=== PATIENT | male | born 1970 | race African-American/Black ===

== ENCOUNTER 2021-10-12 01:46 | Emergency (ER) | payer OTHER ==
[~2021-10-12] VITALS: Ht 170.2 cm; Wt 109.0 kg
[2021-10-12 02:41] LABS: BASOPHILS % 0.8 % (0.0-2.0); EOSINOPHILS % 5.8 % (0.0-5.0); HEMATOCRIT. 44.7 % (42.0-52.0); HEMOGLOBIN. 14.9 g/dL (14.0-18.0); LYMPHOCYTES % 24.8 % (20.0-50.0); MEAN CORPUSCULAR HEMOGLOBIN 30.6 pg (28.0-32.0); MEAN CORPUSCULAR VOLUME 91.6 fL (80.0-94.0); MEAN PLATELET VOLUME 8.5 fl (7.4-10.4); MONOCYTES % 11.6 % (2.0-8.0); PLATELET 208 x1000/uL (130-400); RED BLOOD CELL COUNT 4.87 mill/uL (4.7-6.1); RED CELL DISTRIBUTION WIDTH 13.3 % (11.6-14.6)
[2021-10-12 02:46] LABS: CHLORIDE 108 mEq/L (98-107)
[2021-10-12] MEDS ORDERED: ACETAMINOPHEN 325MG TABLET PO ONE (03:15)
[2021-10-12 03:17] LABS: CLARITY URINE CLEAR (CLEAR); COLOR URINE YELLOW (YELLOW); KETONES URINE TRACE (NEGATIVE); LEUKOCYTE ESTERASE URINE NEGATIVE (NEGATIVE); NITRITE URINE NEGATIVE (NEGATIVE); OCCULT BLOOD URINE NEGATIVE (NEGATIVE); PH URINE 6.5 (4.5-8.0); PROTEIN URINE NEGATIVE (NEGATIVE); SPECIFIC GRAVITY URINE 1.024 (1.005-1.030)
[2021-10-12] MEDS ORDERED: HYDR-4001 MT (06:27)
[2021-10-12] MEDS ORDERED: TAMS-11 MT (06:34)
[2021-10-12] MEDS ORDERED: IBUP-2028 MT (06:35)
[2021-10-12] MEDS ORDERED: IOHEXOL-350 100 ML BOTTLE ONE (06:40)
[2021-10-12 07:00] VITALS: BP 125/72
== END 2021-10-12 07:15 | disposition left against medical advice (07) ==
LOC: ER 01:46
DX: S32.028A Other fracture of second lumbar vertebra, initial encounter for closed fracture (principal); S32.038A Other fracture of third lumbar vertebra, initial encounter for closed fracture; R55 Syncope and collapse; N20.0 Calculus of kidney; K57.30 Diverticulosis of large intestine without perforation or abscess without bleeding; M10.9 Gout, unspecified; W01.0XXA Fall on same level from slipping, tripping and stumbling without subsequent striking against object, initial encounter; Y93.89 Activity, other specified; Y92.59 Other trade areas as the place of occurrence of the external cause
CPT/HCPCS: 36415; 70450; 71275; 74174; 80053; 81003; 83690; 84484; 85025; 93005; 99285; Q9967